=== PATIENT | male | born 2000 | race Caucasian/White ===

== ENCOUNTER 2025-08-20 12:59 | Emergency (ER) | payer SELFPAY ==
[~2025-08-20 12:59] MED LIST: Iopamidol-370 76% 500 ML MDV (1 ML CHARGE) ONE
[2025-08-20 15:19] LABS: #Basophils Less than 0.03 10x3/uL (0.0-0.2); #Eosinophils Less than 0.03 10x3/uL (0.0-0.7); #Monocytes 0.71 10x3/uL (0.11-0.59); #Neutrophils 7.63 10x3/uL (1.40-6.50); %Basophils 0.2 % (0.0-1.0); %Eosinophils 0.0 % (0.0-10.0); %Lymphocytes 7.9 % (21.0-51.0); %Monocytes 7.8 % (0.0-10.0); %Neutrophils 83.6 % (42.0-75.0); Hematocrit 48.4 % (42.0-52.0); Hemoglobin 16.4 g/dL (14.0-18.0); Mean Corpuscular Hemoglobin 29.8 pg (27.0-31.0); Mean Corpuscular Volume 88.0 fL (78.0-98.0); Platelet Count 253 10x3/uL (130-400); Red Blood Cell (RBC) Count 5.50 mill/uL (4.70-6.10); White Blood Cell (WBC) Count 9.13 10x3/uL (4.8-10.8)
[2025-08-20 15:44] LABS: ALT (SGPT) 14 U/L (Less than 45); AST (SGOT) 23 U/L (11-34); Albumin 5.1 g/dL (3.1-4.5); Alkaline Phosphatase 86 U/L (40-110); Anion Gap 16 mmol/L (10-20); BUN (Urea Nitrogen) 17 mg/dL (8.9-20.6); Bilirubin, Total 1.5 mg/dL (0.3-1.2); Calc. Creatinine Clearance 0 mL/min (70-130); Calcium 10.1 mg/dL (7.8-10.44); Carbon Dioxide 23 mmol/L (22-29); Chloride 102 mmol/L (98-107); Globulin 4.0 g/dL (2.4-3.5); Glucose 85 mg/dL (70-105); Potassium 4.1 mmol/L (3.5-5.1); Sodium 137 mmol/L (136-145)
[2025-08-20] MEDS ORDERED: cefTRIAXone (ROCEPHIN) 1 GM VIAL ONE (17:09)
== END 2025-08-20 17:26 | disposition home or self-care (01) ==
LOC: ERS 12:59
DX: J18.9 Pneumonia, unspecified organism (principal)
CPT/HCPCS: 71045; 71275; 80053; 84484; 85025; 85379; 96372; J0696; Q9967